=== PATIENT | male | born 1995 | race Caucasian/White ===

== ENCOUNTER 2020-06-09 07:02 | Emergency (ER) | payer OTHER ==
[~2020-06-09] VITALS: Ht 162.6 cm; Wt 64.0 kg
[2020-06-09 07:20] VITALS: BP 124/80
[2020-06-09 07:42] LABS: CLARITY,URINE CLEAR (Clear); COLOR,URINE YELLOW (Yellow); GLUCOSE, URINE NEGATIVE (Neg); KETONES,URINE 15 mg/dl (Neg); LEUKOCYTE ESTERASE ,URINE NEGATIVE (Neg); NITRITES, URINE NEGATIVE (Neg); OCCULT BLOOD,URINE NEGATIVE (Neg); PROTEIN,URINE NEGATIVE (Neg); UROBILINOGEN,URINE 0.2 E.U/dL (0.2-1.0)
[2020-06-09 07:44] LABS: UA COLLECTION TYPE CLN CATCH MIDSTREAM
[2020-06-09] MEDS ORDERED: ibuprofen 200mg tablet PO ONE (07:45)
[2020-06-09] MEDS ORDERED: ibuprofen 200mg tablet ONE (07:57)
--- NOTE | 2020-06-09 08:39 | NUR ---
PT FEELING BETTER AFTER PAIN MEDS. PT TO F/U WITH PMD.
== END 2020-06-09 08:41 | disposition home or self-care (01) ==
LOC: ER 07:03
DX: R10.9 Unspecified abdominal pain (principal)
CPT/HCPCS: 81003; 99283